=== PATIENT | female | born 1955 | race Caucasian/White ===

== ENCOUNTER 2018-07-27 13:24 | Day surgery (SDC) | payer MEDICARE, OTHER ==
[2018-07-27] MEDS ORDERED: PROPOFOL 80 ML (15:21)
== END 2018-07-27 16:12 | disposition home or self-care (01) ==
LOC: GIL 13:24
DX: K26.9 Duodenal ulcer, unspecified as acute or chronic, without hemorrhage or perforation (principal); K31.819 Angiodysplasia of stomach and duodenum without bleeding; K57.30 Diverticulosis of large intestine without perforation or abscess without bleeding; K59.09 Other constipation; K21.9 Gastro-esophageal reflux disease without esophagitis; R13.10 Dysphagia, unspecified; I10 Essential (primary) hypertension
CPT/HCPCS: 43250